=== PATIENT | male | born 1990 | race Two or more races ===

== ENCOUNTER 2019-06-10 14:33 | Emergency (ER) | payer SELFPAY ==
[~2019-06-10] VITALS: Ht 188 cm; Wt 91.4 kg
[2019-06-10 14:37] VITALS: BP 146/91
[2019-06-10] MEDS ORDERED: ALBUTEROL/IPRATROPIUM 2.5MG/0.5MG, 3 ML ONE (15:21)
[2019-06-10] MEDS ORDERED: IBUPROFEN 600 MG TABLET ONE (15:26)
[2019-06-10] MEDS ORDERED: ALBUTEROL/IPRATROPIUM 2.5MG/0.5MG, 3 ML NPPB ONE (15:30)
[2019-06-10] MEDS ORDERED: IBUPROFEN 600 MG TABLET PO ONE (15:30)
--- NOTE | 2019-06-10 15:32 | NUR ---
FIRST CONTACT WITH PT. RT AT BEDSIDE COMPLETING BREATHING TX. PT REPORTS IMPROVEMENT IN SOB POST TX. RESPIRATIONS EVEN/UNLABORED. PT SPEAKING IN FULL SENTENCES WITH EASE. PT CO DRY COUGH/CP WITH COUGHING X SEVERAL DAYS. +SICK CONTACTS AT HOME WITH SIMILAR SYMPTOMS. DENIES FEVER/ABD PAIN/CP. LUNGS CLEAR. CHEST NON-TENDER TO PALPATION. PT PWD. PT UPDATED TO POC (RESULTS/RECHECK) AND DEMONSTRATES UNDERSTANDING.
[2019-06-10 15:38] LABS: RAPID INFLUENZA A Negative (Negative); RAPID INFLUENZA B Negative (Negative)
--- NOTE | 2019-06-10 15:58 | NUR ---
DC EDUCATION PROVIDED PT DEMONSTRATES UNDERSTANDING. PT AMBUALTED STEADILY TO DC WITH RN
== END 2019-06-10 16:03 | disposition home or self-care (01) ==
LOC: ED 15:55
DX: J03.90 Acute tonsillitis, unspecified (principal); J00 Acute nasopharyngitis [common cold]; B97.89 Other viral agents as the cause of diseases classified elsewhere
CPT/HCPCS: 71046; 87081; 87400; 87880; 94640; 99284; J7620